=== PATIENT | female | born 1965 | race Hispanic/Latino ===

== ENCOUNTER → 2023-05-08 15:13 | Outpatient (REF) | payer OTHER, SELFPAY ==
[2023-05-08 17:02] LABS: ALT (SGPT) 29 U/L (0-35); AST (SGOT) 22 U/L (14-36); Albumin 4.1 g/dl (3.5-5.0); Alkaline Phosphatase 89 U/L (38-126); Blood Urea Nitrogen 13 mg/dl (7-17); Calcium 9.5 mg/dl (8.4-10.2); Carbon Dioxide 28 mmol/L (22-30); Chloride 100 mmol/L (98-107); Glucose 135 mg/dl (70-99); HDL Cholesterol 35 mg/dl; Potassium 4.1 mmol/L (3.5-5.1); Sodium 139 mmol/L (135-145); Total Bilirubin 0.6 mg/dl (0.2-1.3); Total Cholesterol 287 mg/dl (50-199); Total Protein 7.5 g/dl (6.3-8.2); eGFR > 60.00
[2023-05-08 17:15] LABS: Vitamin D, 25-OH*** 28.7 ng/mL (30-80)
[2023-05-08 17:18] LABS: Triglyceride 750 mg/dl (10-149)
[2023-05-08 17:41] LABS: LDL Cholesterol, Direct 164 mg/dl
[2023-05-09 08:24] LABS: Glycohemoglobin (HgbA1c) 6.3 % (4.0-5.6)
== END ==
LOC: CLINIC 15:13
PROVIDERS: ATTENDING PHYSICIAN Nurse Practitioner Acute Care
DX: E78.2 Mixed hyperlipidemia (principal); R73.03 Prediabetes; E55.9 Vitamin D deficiency, unspecified
CPT/HCPCS: 36415; 80053; 80061; 82306; 83036; 83721